=== PATIENT | male | born 1995 | race African-American/Black ===

== ENCOUNTER → 2021-10-17 16:07 | Outpatient (CLI) | payer OTHER, SELFPAY ==
[2021-10-17 19:03] LABS: COVID19 -Nasal RAPID Negative (Negative)
== END ==
PROVIDERS: Referring Provider Internal Medicine; Visit Provider Internal Medicine
DX: Z01.818 Encounter for other preprocedural examination (principal)
CPT/HCPCS: 87635; C9803

== ENCOUNTER → 2021-10-18 06:27 | Outpatient (CLI) | payer OTHER, SELFPAY ==
--- NOTE | 2021-11-17 10:56 | P.PFT.S_ITS ---
Pulmonary Function Test Referral & Results Date Patient Seen: 10/18/21 Requesting provider: REFUGIO Hobson Results: The spirometry demonstrates an FVC of 5.41 L which is 97% of predicted. The FEV1 was measured at 4.17 L which is 92% of predicted. The FEV1/FVC ratio was 77 which is 94% of predicted. Following the administration of bronchodilator there was a 10% improvement in FEV1 and a 63% improvement in FEF 25-75%. Interpretation: This study demonstrates possibly very mild/minimal obstructive lung disease based primarily on improvement in numbers following bronchodilator as above. [place] a flow volume loops also probably supports the presence of some degree of obstructive lung disease Clinical correlation suggested
== END ==
DX: R05.3 Chronic cough (principal)
CPT/HCPCS: 94060

== ENCOUNTER 2021-11-01 13:08 | Outpatient (CLI) | payer OTHER, SELFPAY | END 2021-11-06 13:28 | disposition home or self-care (01) | LOC: PHYS 13:10 | PROVIDERS: PCP Student in an Organized Health Care Education/Training Program; Referring Provider Student in an Organized Health Care Education/Training Program; Visit Provider Student in an Organized Health Care Education/Training Program | DX: M25.529 Pain in unspecified elbow (principal) | CPT/HCPCS: 95886; 95909 ==